=== PATIENT | male | born 1970 | race Caucasian/White ===

== ENCOUNTER 2017-07-07 08:15 | Outpatient (CLI) | payer OTHER | END 2017-07-07 14:38 | disposition home or self-care (01) | LOC: SONOGRAMA 08:15 | DX: I86.1 Scrotal varices (principal) ==

== ENCOUNTER 2017-07-22 05:53 | Day surgery (SDC) | payer OTHER ==
[~2017-07-22 05:53] MED LIST: ADVIL100 MG PO
== END 2017-07-22 16:50 | disposition home or self-care (01) ==
LOC: CIR.AMB 05:53
DX: I86.1 Scrotal varices (principal)

== ENCOUNTER 2018-12-19 12:40 | Emergency (ER) | payer OTHER ==
[~2018-12-19] VITALS: Ht 167.6 cm; Wt 72.6 kg
== END 2018-12-19 14:19 | disposition home or self-care (01) ==
LOC: ER 12:40
DX: T23.151A Burn of first degree of right palm, initial encounter (principal); X12.XXXA Contact with other hot fluids, initial encounter; Y93.89 Activity, other specified; Y92.89 Other specified places as the place of occurrence of the external cause; Y99.8 Other external cause status

== ENCOUNTER 2020-02-14 12:47 | Outpatient (CLI) | payer OTHER | END 2020-02-14 12:57 | disposition home or self-care (01) | LOC: TOM 12:47 | PROVIDERS: ATTEND Urology | DX: N20.1 Calculus of ureter (principal) ==